=== PATIENT | female | born 1960 | race Caucasian/White ===

== ENCOUNTER → 2017-03-13 | Day surgery (SDC) | payer BC ==
[~2017-03-13] MED LIST: Lidocaine 1% 20 ML MDV ONE
--- NOTE | 2017-03-15 19:12 | OR ---
DATE OF OPERATION: 03/13/2017 PREOPERATIVE DIAGNOSIS: VENOUS INSUFFICIENCY WITH PAINFUL VARICOSE VEINS. POSTOPERATIVE DIAGNOSIS: VENOUS INSUFFICIENCY WITH PAINFUL VARICOSE VEINS. SURGEON: Stewart Garcia MD PROCEDURE: ENDOVENOUS ABLATION, LEFT GREATER SAPHENOUS VEIN. ANESTHESIA: Local with tumescent. COMPLICATIONS: None. SPECIMEN: None. FINDINGS: Successful VIOLETTE, left GSV. INDICATIONS: The patient has documented venous insufficiency. She is having ongoing symptomatic and painful varicose veins associated with this insufficiency and elects to proceed with endovenous ablation. DESCRIPTION OF PROCEDURE: The patient was brought to the operating room site and the insufficient saphenous vein on the left leg mapped via ultrasound and diagrammed on the overlying skin along with the access point in the lower thigh. The entire limb was prepped and draped in sterile fashion. The patient was placed in reverse Trendelenburg position and local anesthesia in the form of lidocaine was instilled over the access site. The vein was accessed using ultrasound guidance in the Seldinger technique with a guidewire introduced through the needle which was then exchanged over the guidewire for a 6-[place] sheath after a small incision was made with an 11 blade scalpel. The sheath was held in place via skin tension. Guidewire was removed. The sheath was flushed. Radiofrequency probe was placed into the vein through the sheath and positioned approximately 2.2 cm distal to the saphenofemoral junction using ultrasound guidance. After probe position confirmed via ultrasound, tumescent anesthesia was infiltrated precisely into the perivenous compartment along the length of the vein from the entry site into the saphenofemoral junction achieving a halo effect of fluid around the vein under direct ultrasound guidance. The patient was placed back in Trendelenburg position to exsanguinate the superficial venous system. After probe position was again confirmed with ultrasound and under direct external compression along the length of the heating element, radiofrequency energy was applied. The vein was segmentally ablated by heating a 7-cm segment and indexing the catheter forward by 6 cm until treatment length complete. Device temperature was maintained at 120 degrees Celsius with an initial power level of 40 bush dropping to below 20 for each treatment. Total treatment time was 2 minutes with a total of 6 radiofrequency cycles and a total of 200 mL of tumescent anesthesia was used. Ultrasound confirmed successful treatment of the vein. Catheter and sheath were withdrawn and hemostasis was achieved with direct pressure. The skin over the saphenous vein was closed with bandage and compression wrap from the level of the ankle to the groin. The patient was stable in the recovery room. TRAY /[id number]
== END ==
LOC: CC.SDS 06:24
PROVIDERS: ATTEND Family Medicine
DX: I87.2 Venous insufficiency (chronic) (peripheral) (principal); I83.812 Varicose veins of left lower extremity with pain; Z88.8 Allergy status to other drugs, medicaments and biological substances; Z79.899 Other long term (current) drug therapy
CPT/HCPCS: 36475; A4216

== ENCOUNTER → 2017-04-04 | Day surgery (SDC) | payer BC ==
--- NOTE | 2017-04-04 13:18 | OR ---
DATE OF OPERATION: 04/04/2017 PREOPERATIVE DIAGNOSIS: VENOUS INSUFFICIENCY WITH PAINFUL VARICOSE VEINS. POSTOPERATIVE DIAGNOSIS: VENOUS INSUFFICIENCY WITH PAINFUL VARICOSE VEINS. SURGEON: Stewart Garcia MD PROCEDURE: ENDOVENOUS ABLATION, RIGHT GREAT SAPHENOUS VEIN. ANESTHESIA: Local with tumescent. COMPLICATIONS: None. SPECIMEN: None. FINDINGS: Successful VIOLETTE, right GSV. INDICATIONS: The patient has documented venous insufficiency with painful varicose veins. She elects to proceed with endovenous ablation. DESCRIPTION OF PROCEDURE: The patient was brought operating room site and insufficient saphenous vein mapped via ultrasound and diagrammed along the overlying skin along with the access site above the right knee. The patient was placed in reverse Trendelenburg position and local anesthesia was instilled at the access site. The vein was accessed using ultrasound guidance and Seldinger technique in usual fashion with a guidewire inserted through the needle. Needle was removed. A small skin incision was made with an 11 blade scalpel. Wire was then exchanged for a 6-[place] sheath in usual fashion and held in place by skin tension. After guidewire was removed, the sheath was flushed. The radiofrequency probe was placed into the vein through the sheath and positioned approximately 1.5 cm distal to the saphenofemoral junction using ultrasound guidance. After probe position verified via ultrasound, tumescent anesthesia was infiltrated under ultrasound guidance, precisely into the perivenous compartment along the length of the vein from the entry site to the junction achieving a halo effect of fluid around the vein. The patient was placed back in Trendelenburg position to exsanguinate the superficial system. Radiofrequency probe position again confirmed and under direct external compression along the length of the heating element, radiofrequency energy was applied. The vein was segmentally ablated by heating a 7 cm segment and indexing the catheter forward 6 cm until treatment length complete. Device temperature was maintained at 120 degrees Celsius with an initial power level of 40 bush, dropping to below 20 for each treatment. Total treatment time was 2 minutes and 20 seconds with 150 mL of tumescent use and a total of 7 radiofrequency cycles. Repeat ultrasound confirmed successful treatment. The catheter and sheath were withdrawn without complication and hemostasis was achieved with direct pressure. Skin incision was closed with bandage and a compression wrap was applied from the level of the foot to the groin. The patient was stable in the recovery room. PEGGY/SHANTI /[id number]
== END ==
LOC: CC.SDS 06:23
PROVIDERS: ATTEND Family Medicine
DX: I87.2 Venous insufficiency (chronic) (peripheral) (principal); I83.811 Varicose veins of right lower extremity with pain; Z88.8 Allergy status to other drugs, medicaments and biological substances; Z79.899 Other long term (current) drug therapy; Z77.22 Contact with and (suspected) exposure to environmental tobacco smoke (acute) (chronic)
CPT/HCPCS: 36475; A4216